=== PATIENT | female | born 1995 | race Two or more races ===

== ENCOUNTER 2018-07-13 22:44 | Inpatient (IN) | payer BC ==
[~2018-07-13] VITALS: Ht 154.9 cm; Wt 72.0 kg
[2018-07-13] MEDS ORDERED: ACETAMINOPHEN 325 MG TABLET ONE (22:53)
[2018-07-13] MEDS ORDERED: ONDANSETRON ODT 4 MG PO ONE (23:00)
[2018-07-13] MEDS ORDERED: ACETAMINOPHEN 325 MG TABLET PO ONE (23:00)
[2018-07-13 23:24] LABS: HCG UR SG > 1.030 (1.003-1.030); MICROSCOPIC INDICATED
[2018-07-13 23:30] LABS: CULTURE INDICATED? NO
[2018-07-13] MEDS ORDERED: SODIUM CHLORIDE 0.9% 1,000 ML IV ONE (23:33)
[2018-07-13] MEDS ORDERED: MORPHINE SULFATE 4 MG/ML, 1ML ONE (23:49)
[2018-07-13] MEDS: MORPHINE SULFATE 4 MG/ML, 1ML IVPush PRN (23:53)
[2018-07-13 23:55] LABS: MEAN CORPUSCULAR HGB CONC 34.4 g/dL (32.4-35.8); MEAN CORPUSCULAR VOLUME 87.1 fL (80-100); MEAN PLATELET VOLUME 7.6 fL (7.4-10.4); PLATELET COUNT 305 x10^3/uL (130-400); RED BLOOD COUNT 5.23 x10^6/uL (3.82-5.3); RED CELL DISTRIBUTION WIDTH 13.1 % (9.6-15.2)
[2018-07-14] MEDS ORDERED: SODIUM CHLORIDE FLUSH 10ML SYR IVF ONE
[2018-07-14 00:02] LABS: ALANINE AMINOTRANSFERASE 15 U/L (12-78); ALBUMIN 3.9 g/dL (3.4-5.0); ANION GAP 10 mmol/L (5-15); CALCIUM 9.3 mg/dL (8.5-10.1); CHLORIDE 102 mmol/L (98-107); CREATININE 0.89 mg/dL (0.55-1.02)
[2018-07-14 00:04] LABS: ALKALINE PHOSPHATASE 83 U/L (45-117); BILIRUBIN,TOTAL 0.7 mg/dL (0.2-1.0); TOTAL PROTEIN 8.6 g/dL (6.4-8.2)
[2018-07-14] MEDS ORDERED: OMNIPAQUE 350 MG/ML, 100ML BOTTLE ONE (00:23)
[2018-07-14 00:29] LABS: MD YES
[2018-07-14 00:30] LABS: BAND#(MANUAL) 2.93 x10^3/uL; BANDS%(MANUAL) 16 % (0-7); EOS#(MANUAL) 0.18 x10^3/uL (0.0-0.4); EOS% (MANUAL) 1 % (1-7); LYMPH#(MANUAL) 0.55 x10^3/uL (1-3.4); LYMPHS% (MANUAL) 3 % (22-44); MONOS#(MANUAL) 0.73 x10^3/uL (0.3-2.7); MONOS% (MANUAL) 4 % (2-9); SEG#(MANUAL) 13.91 x10^3/uL (1.8-6.8); SEGS% (MANUAL) 76 % (42-75)
[2018-07-14 00:32] LABS: <PLATELET ESTIMATE> ADEQUATE; <PLT MORPHOLOGY> NORMAL PLT MORPH; <RBC MORPHOLOGY> NORMAL
[2018-07-14] MEDS ORDERED: MORPHINE SULFATE 4 MG/ML, 1ML ONE (00:56)
[2018-07-14] MEDS: MORPHINE SULFATE 4 MG/ML, 1ML IVPush PRN (01:01)
[2018-07-14] MEDS ORDERED: METRONIDAZOLE PMX 500MG/100ML 100 ML ONE (01:14)
[2018-07-14] MEDS ORDERED: CEFTRIAXONE PMX 1GM/50ML 50 ML ONE (01:14)
[2018-07-14] MEDS ORDERED: SODIUM CHLORIDE 0.9% 1,000 ML IV ONE (01:19)
[2018-07-14] MEDS ORDERED: CEFTRIAXONE 1,000 MG in SODIUM CHLORIDE 0.9% 50 ML IVPB ONE (01:30)
[2018-07-14] MEDS ORDERED: SODIUM CHLORIDE 0.9% 1,000ML IVBOLUS ONE ×2 (01:30)
[2018-07-14] MEDS ORDERED: METRONIDAZOLE PMX 500MG/100ML 100 ML IVPB ONE (01:30)
[2018-07-14] MEDS ORDERED: SODIUM CHLORIDE FLUSH 10ML SYR IVF PRN (01:30)
[2018-07-14 02:21] VITALS: BP 110/77
[2018-07-14] MEDS ORDERED: morphine SULFATE 10 MG/ML, 1ML IVPush PRN (03:30)
[2018-07-14] MEDS ORDERED: ONDANSETRON 2MG/ML, 2ML IVPush PRN ×2 (03:30→05:00)
[2018-07-14] MEDS ORDERED: ONDANSETRON ODT 4 MG PO PRN (04:00)
[2018-07-14 04:10] LABS: CLOSTRIDIUM DIFFICILE ANTIGEN NEGATIVE; CLOSTRIDIUM DIFFICILE TOXIN NEGATIVE (Negative)
[2018-07-14] MEDS: LOPERAMIDE 2 MG CAPSULE PO PRN ×4 (05:00→23:04)
[2018-07-14] MEDS: ONDANSETRON ODT 4 MG PO PRN ×3 (05:00→17:31)
[2018-07-14] MEDS ORDERED: PROMETHAZINE 25 MG/ML, 1ML IM PRN (05:00)
[2018-07-14] MEDS: ENOXAPARIN 40 MG/0.4 ML SQ SCH (05:00)
[2018-07-14] MEDS: LACTATED RINGERS 1,000 ML IV SCH ×4 (05:01→23:05)
[2018-07-14 07:40] VITALS: BP 111/75
[2018-07-14] MEDS: ACETAMINOPHEN 325 MG TABLET PO PRN ×4 (07:59→23:04)
[2018-07-14] MEDS: METRONIDAZOLE PMX 500MG/100ML 100 ML IV SCH ×2 (10:18→17:42)
[2018-07-14 14:40] VITALS: BP 109/73
[2018-07-14] MEDS: morphine SULFATE 10 MG/ML, 1ML IVPush PRN ×2 (17:42→20:51)
[2018-07-14 20:15] VITALS: BP 102/67
[2018-07-15 00:46] VITALS: BP 102/68
[2018-07-15] MEDS: ONDANSETRON ODT 4 MG PO PRN ×2 (00:47→09:48)
[2018-07-15] MEDS: morphine SULFATE 10 MG/ML, 1ML IVPush PRN ×3 (00:47→09:41)
[2018-07-15] MEDS: CEFTRIAXONE 1,000 MG in SODIUM CHLORIDE 0.9% 50 ML IV SCH (01:44)
[2018-07-15] MEDS: LOPERAMIDE 2 MG CAPSULE PO PRN (01:44)
[2018-07-15] MEDS: METRONIDAZOLE PMX 500MG/100ML 100 ML IV SCH ×3 (02:32→23:27)
[2018-07-15] MEDS: ENOXAPARIN 40 MG/0.4 ML SQ SCH (05:24)
[2018-07-15] MEDS: LACTATED RINGERS 1,000 ML IV SCH ×2 (05:24→17:48)
[2018-07-15 06:14] LABS: BASOPHILS # (AUTO) 0.01 x10^3/uL (0-0.1); BASOPHILS % (AUTO) 0 % (0-1); EOSINOPHILS % (AUTO) 0 % (1-7); LYMPHOCYTES # (AUTO) 0.65 x10^3/uL (1-3.4); LYMPHOCYTES % (AUTO) 10 % (22-44); MD NO; MEAN CORPUSCULAR HEMOGLOBIN 29.9 pg (27.0-34.8); MEAN CORPUSCULAR HGB CONC 33.9 g/dL (32.4-35.8); MEAN CORPUSCULAR VOLUME 88.3 fL (80-100); MEAN PLATELET VOLUME 7.7 fL (7.4-10.4); MONOCYTES # (AUTO) 0.52 x10^3/uL (0.2-0.8); MONOCYTES % (AUTO) 8 % (2-9); NEUTROPHILS # (AUTO) 5.05 x10^3/uL (1.8-6.8); NEUTROPHILS % (AUTO) 81 % (42-75); PLATELET COUNT 221 x10^3/uL (130-400); RED BLOOD COUNT 4.12 x10^6/uL (3.82-5.3); RED CELL DISTRIBUTION WIDTH 13.2 % (9.6-15.2)
[2018-07-15 06:16] LABS: ANION GAP 7 mmol/L (5-15); CALCIUM 7.8 mg/dL (8.5-10.1); CHLORIDE 103 mmol/L (98-107); CREATININE 0.58 mg/dL (0.55-1.02)
[2018-07-15 07:10] VITALS: BP 107/71
[2018-07-15] MEDS: ACETAMINOPHEN 325 MG TABLET PO PRN (09:41)
[2018-07-15] MEDS ORDERED: MAGNESIUM SULFATE 3 GM in SODIUM CHLORIDE 0.9% 100 ML IV ONE (10:00)
[2018-07-15] MEDS: NEUTRA PHOS K 250 MG TABLET PO SCH ×2 (10:48→23:27)
[2018-07-15] MEDS ORDERED: POTASSIUM CHLORIDE 40 MEQ in SODIUM CHLORIDE 0.9% 500 ML IV ONE (12:30)
[2018-07-15] MEDS ORDERED: MOVIPREP POWDER 1 PREP KIT PO ONE (14:00)
[2018-07-15 16:04] LABS: HCT (SEDRATE) 36.7 % (34.6-47.8)
[2018-07-15 16:13] LABS: INTERNATIONAL NORMALIZED RATIO 1.04 (0.93-1.1); PROTHROMBIN TIME 10.7 Seconds (9.6-11.5)
[2018-07-15 18:26] VITALS: BP 112/75
[2018-07-15 20:14] VITALS: BP 125/84
[2018-07-16] VITALS (8 sets, daily range): BP systolic 93–121; BP diastolic 56–76
[2018-07-16] MEDS: CEFTRIAXONE 1,000 MG in SODIUM CHLORIDE 0.9% 50 ML IV SCH (01:06)
[2018-07-16 05:09] LABS: CHLORIDE 108 mmol/L (98-107)
[2018-07-16 05:18] LABS: ALANINE AMINOTRANSFERASE 16 U/L (12-78); ALBUMIN 2.6 g/dL (3.4-5.0); ALKALINE PHOSPHATASE 55 U/L (45-117); ANION GAP 9 mmol/L (5-15); BILIRUBIN,TOTAL 0.3 mg/dL (0.2-1.0); CALCIUM 7.7 mg/dL (8.5-10.1); TOTAL PROTEIN 6.3 g/dL (6.4-8.2)
[2018-07-16 05:21] LABS: BASOPHILS # (AUTO) 0.02 x10^3/uL (0-0.1); BASOPHILS % (AUTO) 0 % (0-1); EOSINOPHILS # (AUTO) 0.02 x10^3/uL (0-0.4); EOSINOPHILS % (AUTO) 1 % (1-7); LYMPHOCYTES # (AUTO) 1.03 x10^3/uL (1-3.4); LYMPHOCYTES % (AUTO) 20 % (22-44); MD NO; MEAN CORPUSCULAR HEMOGLOBIN 29.7 pg (27.0-34.8); MEAN CORPUSCULAR HGB CONC 34.2 g/dL (32.4-35.8); MEAN CORPUSCULAR VOLUME 86.8 fL (80-100); MEAN PLATELET VOLUME 7.7 fL (7.4-10.4); MONOCYTES # (AUTO) 0.53 x10^3/uL (0.2-0.8); MONOCYTES % (AUTO) 10 % (2-9); NEUTROPHILS # (AUTO) 3.45 x10^3/uL (1.8-6.8); NEUTROPHILS % (AUTO) 68 % (42-75); PLATELET COUNT 210 x10^3/uL (130-400); RED BLOOD COUNT 3.92 x10^6/uL (3.82-5.3); RED CELL DISTRIBUTION WIDTH 13.4 % (9.6-15.2)
[2018-07-16] MEDS: morphine SULFATE 10 MG/ML, 1ML IVPush PRN (08:49)
[2018-07-16] MEDS: METRONIDAZOLE PMX 500MG/100ML 100 ML IV SCH ×2 (08:49→19:59)
[2018-07-16] MEDS: LACTATED RINGERS 1,000 ML IV SCH ×3 (08:49→20:20)
[2018-07-16] MEDS: NEUTRA PHOS K 250 MG TABLET PO SCH ×2 (08:50→21:26)
[2018-07-16] MEDS ORDERED: FENTANYL PF 100 MCG/2ML ONE (09:44)
[2018-07-16] MEDS ORDERED: MIDAZOLAM 1 MG/ML, 2ML ONE (09:44)
[2018-07-16] MEDS ORDERED: FENTANYL PF 100 MCG/2ML IV PRN (10:30)
[2018-07-16] MEDS ORDERED: OXYcodone 5 MG/5 ML ORAL.SOL UDC PO PRN (10:30)
[2018-07-16] MEDS ORDERED: PROMETHAZINE 25 MG/ML, 1ML IV PRN (10:30)
[2018-07-16] MEDS ORDERED: HYDROmorphone 1 MG/ML, 1ML IV PRN (10:30)
[2018-07-16] MEDS ORDERED: MEPERIDINE/PF 25MG/0.5ML IVPush PRN (10:30)
[2018-07-16] MEDS ORDERED: LABETALOL 5MG/ML, 20ML IV PRN (10:30)
[2018-07-16] MEDS ORDERED: ACETAMINOPHEN 325 MG TABLET PO PRN (10:30)
[2018-07-16] MEDS ORDERED: POTASSIUM CHLORIDE 40 MEQ in SODIUM CHLORIDE 0.9% 500 ML IV ONE (10:30)
[2018-07-16] MEDS ORDERED: HALOPERIDOL 5 MG/ML IV PRN (10:30)
[2018-07-16] MEDS ORDERED: hydrALAzine 20 MG/ML, 1ML IV PRN (10:30)
[2018-07-16] MEDS ORDERED: ONDANSETRON 2MG/ML, 2ML ONE (11:28)
[2018-07-16] MEDS ORDERED: KETOROLAC 30 MG/1 ML ONE (11:28)
[2018-07-16] MEDS ORDERED: PROPOFOL 10 MG/ML, 50ML ONE (11:28)
[2018-07-17 00:58] VITALS: BP 111/75
[2018-07-17] MEDS: CEFTRIAXONE 1,000 MG in SODIUM CHLORIDE 0.9% 50 ML IV SCH (01:40)
[2018-07-17] MEDS: METRONIDAZOLE PMX 500MG/100ML 100 ML IV SCH ×3 (04:36→19:26)
[2018-07-17] MEDS: LACTATED RINGERS 1,000 ML IV SCH ×2 (04:36→17:06)
[2018-07-17 05:03] LABS: BASOPHILS # (AUTO) 0.02 x10^3/uL (0-0.1); BASOPHILS % (AUTO) 0 % (0-1); EOSINOPHILS # (AUTO) 0.12 x10^3/uL (0-0.4); EOSINOPHILS % (AUTO) 2 % (1-7); LYMPHOCYTES # (AUTO) 1.03 x10^3/uL (1-3.4); LYMPHOCYTES % (AUTO) 16 % (22-44); MD NO; MEAN CORPUSCULAR HEMOGLOBIN 30.2 pg (27.0-34.8); MEAN CORPUSCULAR HGB CONC 34.4 g/dL (32.4-35.8); MEAN CORPUSCULAR VOLUME 87.6 fL (80-100); MEAN PLATELET VOLUME 7.6 fL (7.4-10.4); MONOCYTES # (AUTO) 0.78 x10^3/uL (0.2-0.8); MONOCYTES % (AUTO) 12 % (2-9); NEUTROPHILS % (AUTO) 69 % (42-75); PLATELET COUNT 247 x10^3/uL (130-400); RED BLOOD COUNT 3.93 x10^6/uL (3.82-5.3); RED CELL DISTRIBUTION WIDTH 13.4 % (9.6-15.2)
[2018-07-17 05:09] LABS: ALBUMIN 2.6 g/dL (3.4-5.0); ANION GAP 9 mmol/L (5-15); CALCIUM 7.7 mg/dL (8.5-10.1); CHLORIDE 107 mmol/L (98-107)
[2018-07-17 05:12] LABS: ALANINE AMINOTRANSFERASE 52 U/L (12-78); ALKALINE PHOSPHATASE 52 U/L (45-117); BILIRUBIN,TOTAL 0.2 mg/dL (0.2-1.0); CREATININE 0.45 mg/dL (0.55-1.02); TOTAL PROTEIN 6.1 g/dL (6.4-8.2)
[2018-07-17] MEDS ORDERED: MAGNESIUM SULFATE 1 GM in SODIUM CHLORIDE 0.9% 50 ML IV ONE (06:30)
[2018-07-17 07:13] VITALS: BP 104/68
[2018-07-17] MEDS: NEUTRA PHOS K 250 MG TABLET PO SCH ×3 (08:13→20:47)
[2018-07-17 12:17] VITALS: BP 109/71
[2018-07-17 19:41] VITALS: BP 121/80
[2018-07-18] MEDS: LACTATED RINGERS 1,000 ML IV SCH ×3 (00:19→17:21)
[2018-07-18] MEDS: CEFTRIAXONE 1,000 MG in SODIUM CHLORIDE 0.9% 50 ML IV SCH (01:36)
[2018-07-18 01:38] VITALS: BP 112/75
[2018-07-18] MEDS: METRONIDAZOLE PMX 500MG/100ML 100 ML IV SCH ×3 (03:02→19:33)
[2018-07-18 05:43] LABS: ALANINE AMINOTRANSFERASE 91 U/L (12-78); ALBUMIN 2.7 g/dL (3.4-5.0); ANION GAP 11 mmol/L (5-15); CALCIUM 7.7 mg/dL (8.5-10.1); CHLORIDE 105 mmol/L (98-107)
[2018-07-18 05:45] LABS: ALKALINE PHOSPHATASE 55 U/L (45-117); BILIRUBIN,TOTAL 0.2 mg/dL (0.2-1.0); TOTAL PROTEIN 6.2 g/dL (6.4-8.2)
[2018-07-18] MEDS ORDERED: POTASSIUM CHLORIDE 20 MEQ TAB.ER.PRT PO ONE (06:30)
[2018-07-18] MEDS: NEUTRA PHOS K 250 MG TABLET PO SCH (08:59)
[2018-07-18 09:34] VITALS: BP 109/73
[2018-07-18 13:12] VITALS: BP 131/86
[2018-07-18 21:00] VITALS: BP 115/69
[2018-07-19] MEDS: LACTATED RINGERS 1,000 ML IV SCH ×3 (00:39→15:21)
[2018-07-19 02:48] VITALS: BP 126/86
[2018-07-19] MEDS: METRONIDAZOLE PMX 500MG/100ML 100 ML IV SCH ×2 (03:36→11:58)
[2018-07-19 05:14] LABS: ALBUMIN 2.8 g/dL (3.4-5.0); ANION GAP 7 mmol/L (5-15); CALCIUM 8.3 mg/dL (8.5-10.1); CHLORIDE 107 mmol/L (98-107)
[2018-07-19 05:18] LABS: ALANINE AMINOTRANSFERASE 85 U/L (12-78); ALKALINE PHOSPHATASE 58 U/L (45-117); BILIRUBIN,TOTAL 0.3 mg/dL (0.2-1.0); CREATININE 0.49 mg/dL (0.55-1.02); TOTAL PROTEIN 6.4 g/dL (6.4-8.2)
[2018-07-19 07:03] VITALS: BP 124/83
[2018-07-19] MEDS ORDERED: LOPE2CAP PO (14:27)
[2018-07-19 14:29] VITALS: BP 100/66
[2018-07-19] MEDS ORDERED: METR500T8 PO (14:30)
== END 2018-07-19 17:21 | disposition home or self-care (01) | DRG 392 ==
LOC: ED 23:59 → EDIP 07-14 01:19 → 3NE 07-14 01:50
PROVIDERS: ADMIT Hospitalist; ATTEND Hospitalist
PROC: 0DBN8ZX Excision of Sigmoid Colon, Via Natural or Artificial Opening Endoscopic, Diagnostic (ICD-10-PCS; 2018-07-16)
PROC: 0DBP8ZX Excision of Rectum, Via Natural or Artificial Opening Endoscopic, Diagnostic (ICD-10-PCS; 2018-07-16)
PROC: 0DBB8ZX Excision of Ileum, Via Natural or Artificial Opening Endoscopic, Diagnostic (ICD-10-PCS; 2018-07-16)
PROC: 0DBH8ZX Excision of Cecum, Via Natural or Artificial Opening Endoscopic, Diagnostic (ICD-10-PCS; 2018-07-16)
PROC: 0DBK8ZX Excision of Ascending Colon, Via Natural or Artificial Opening Endoscopic, Diagnostic (ICD-10-PCS; principal; 2018-07-16 08:30)
DX: K52.9 Noninfective gastroenteritis and colitis, unspecified (principal); E87.1 Hypo-osmolality and hyponatremia; E83.42 Hypomagnesemia; K64.1 Second degree hemorrhoids; R31.29 Other microscopic hematuria; Z81.8 Family history of other mental and behavioral disorders; E83.39 Other disorders of phosphorus metabolism; K82.4 Cholesterolosis of gallbladder
CPT/HCPCS: 36415; 74177; 76700; 80048; 80053; 81001; 81025; 83605; 83690; 83735; 84100; 84145; 85025; 85610; 85651; 86141; 87040; 87324; 88305; 89055; 96361; 96365; 96375; 96376; G0378; J0696; J1650; J1885; J2250; J2405; J2550; J2704; J3010; J3475; J3480; Q0162; Q9967; J2270; J7030; J7040; J7120